=== PATIENT | female | born 1965 | race Caucasian/White ===

== ENCOUNTER 2017-08-09 13:42 | Observation (INO) | payer SELFPAY ==
[~2017-08-09] VITALS: Ht 157.5 cm; Wt 103.5 kg
[~2017-08-09 13:42] MED LIST: ATENOLOL25 MG PO; ATENOLOL50 MG PO; B/P MED; BACTRIM DS1 TAB OR; BACTRIM DS1 TAB PO; BENADRYL 50MG C50 MG OR; DOXYCYC MONO100 MG OR; DOXYCYCL HYC100 MG PO; LISINOPRIL10 MG PO; LORTAB 10 PO; METRONIDAZOL500 MG PO; MOTRIN800 MG PO; NO HOME MEDS; NORVASC PO; PREVACID30 M3 PO; ULTRAM50 M1 OR; ULTRAM50 M1 PO; ZOFRAN ODT4 MG PO
[2017-08-09 14:38] LABS: HEMATOCRIT 43.4 % (37.0-47.0); HEMOGLOBIN 14.8 g/dl (12.0-16.0); IMMATURE GRANULOCYTES 0.4 % (0.0-1.0); MEAN CELL VOLUME 84.4 fL CALC (80.0-100.0); MEAN CORPUSCULAR HGB 28.8 pG CALC (26.0-32.0); MEAN CORPUSCULAR HGB CONC 34.1 g/L CALC (32.0-36.0); NEUT# 7.99 thou/uL (2.00-7.15); RED BLOOD COUNT 5.14 mill/uL (4.20-5.60); RED CELL DISTRI WIDTH 13.3 % (11.5-15.5)
[2017-08-09 14:54] LABS: ALBUMIN 4.4 g/dL (3.2-5.0); ALKALINE PHOSPHATASE 117 u/l (38-126); ANION GAP 16 (6-22 (CALC)); BILIRUBIN, TOTAL 0.9 mg/dL (0.0-1.4); BUN 19 mg/dL (7-17); BUN/CREATININE RATIO 27 (12-20 (CALC)); CALCIUM 9.5 mg/dL (8.4-10.2); CARBON DIOXIDE 24 mmol/l (22-30); CHLORIDE 107 mmol/l (95-108); CREATININE 0.7 mg/dL (0.5-1.0); GFR > 60 ML/MIN (>=60 (CALC)); GFR FOR AFR.AMER. > 60 ML/MIN (>=60 (CALC)); GLUCOSE 101 mg/dL (65-105); POTASSIUM 5.1 mmol/l (3.5-5.1); SGOT/AST 42 u/l (14-36); SGPT/ALT 23 u/l (9-52); SODIUM 142 mmol/l (137-146); TOTAL PROTEIN 8.4 g/dL (6.3-8.2)
[2017-08-09 15:07] LABS: MYOGLOBIN 17 ng/mL (0 - 62)
[2017-08-09 19:11] VITALS: BP 138/79
[2017-08-09 22:07] VITALS: BP 151/78
[2017-08-10 00:10] VITALS: BP 137/71
[2017-08-10 04:28] VITALS: BP 149/83
[2017-08-10 06:09] LABS: HEMATOCRIT 39.9 % (37.0-47.0); HEMOGLOBIN 13.4 g/dl (12.0-16.0); IMMATURE GRANULOCYTES 0.4 % (0.0-1.0); MEAN CELL VOLUME 85.3 fL CALC (80.0-100.0); MEAN CORPUSCULAR HGB 28.6 pG CALC (26.0-32.0); MEAN CORPUSCULAR HGB CONC 33.6 g/L CALC (32.0-36.0); NEUT# 7.6 thou/uL (2.00-7.15); RED BLOOD COUNT 4.68 mill/uL (4.20-5.60); RED CELL DISTRI WIDTH 13.4 % (11.5-15.5)
[2017-08-10 06:22] LABS: ANION GAP 15 (6-22 (CALC)); BUN 21 mg/dL (7-17); BUN/CREATININE RATIO 32 (12-20 (CALC)); CALCIUM 9.1 mg/dL (8.4-10.2); CALCULATED LDLCHOLESTEROL 125 mg/dL (62-129 (CALC)); CARBON DIOXIDE 23 mmol/l (22-30); CHLORIDE 107 mmol/l (95-108); CHOLESTEROL HDL RATIO 5.5 (<4.4 (CALC)); CREATININE 0.7 mg/dL (0.5-1.0); GFR > 60 ML/MIN (>=60 (CALC)); GFR FOR AFR.AMER. > 60 ML/MIN (>=60 (CALC)); GLUCOSE 142 mg/dL (65-105); HDL CHOLESTEROL 34 mg/dL (>=40); MAGNESIUM 1.6 mg/dL (1.6-2.3); SODIUM 142 mmol/l (137-146); TOTAL CHOLESTEROL 188 mg/dl (0-199); TOTAL TRIGLYCERIDES 145 mg/dl (30-149); VLDL CHOLESTROL 29 mg/dl (2-49 (CALC))
[2017-08-10 08:52] VITALS: BP 176/89
[2017-08-10 11:28] VITALS: BP 159/86
[2017-08-10] MEDS ORDERED: AMLODIPINE BESYL5 MG PO (13:30)
[2017-08-10] MEDS ORDERED: ZESTRIL10 M1 PO (13:30)
[2017-08-10] MEDS ORDERED: ASPIRIN ADULT L81 M2 PO (13:30)
== END 2017-08-10 17:15 | disposition home or self-care (01) | DRG 313 ==
LOC: ED 13:42 → ED-I 15:09 → ED 16:28 → MS2 16:29
PROVIDERS: Emergency Medicine; Nurse Practitioner Family; ADMIT Internal Medicine; ATTEND Internal Medicine
DX: R07.89 Other chest pain (principal); I16.0 Hypertensive urgency; I10 Essential (primary) hypertension; Z68.41 Body mass index [BMI] 40.0-44.9, adult; B19.20 Unspecified viral hepatitis C without hepatic coma; Z87.442 Personal history of urinary calculi; F17.210 Nicotine dependence, cigarettes, uncomplicated; E66.9 Obesity, unspecified; Z91.14 Patient's other noncompliance with medication regimen
CPT/HCPCS: G0378

== ENCOUNTER 2017-12-09 08:26 | Emergency (ER) | payer SELFPAY ==
[~2017-12-09] VITALS: Ht 157.5 cm; Wt 127.0 kg
[~2017-12-09 08:26] MED LIST changes: +AMLODIPINE BESYL5 MG PO; +ASPIRIN ADULT L81 M2 PO; +ZESTRIL10 M1 PO
[2017-12-09 09:11] LABS: HEMATOCRIT 44.8 % (37.0-47.0); HEMOGLOBIN 15.1 g/dl (12.0-16.0); IMMATURE GRANULOCYTES 0.3 % (0.0-1.0); MEAN CELL VOLUME 84.5 fL CALC (80.0-100.0); MEAN CORPUSCULAR HGB 28.5 pG CALC (26.0-32.0); MEAN CORPUSCULAR HGB CONC 33.7 g/L CALC (32.0-36.0); NEUT# 8.11 thou/uL (2.00-7.15); RED BLOOD COUNT 5.3 mill/uL (4.20-5.60); RED CELL DISTRI WIDTH 12.6 % (11.5-15.5)
[2017-12-09 10:14] LABS: URINE BILIRUBIN - DIPSTICK NEGATIVE (NEGATIVE); URINE BLOOD DIPSTICK NEGATIVE (NEGATIVE); URINE COLOR YELLOW; URINE GLUCOSE - DIPSTICK 100 mg/dL (NEGATIVE); URINE KETONE TRACE mg/dL (NEGATIVE); URINE LEUK ESTERASE NEGATIVE (NEGATIVE); URINE NITRITE - DIPSTICK NEGATIVE (Negative); URINE PROTEIN - DIPSTICK 30 mg/dL (NEG-TRACE); URINE UROBILINOGEN - DIPSTICK 0.2 E.U./dL (0.2)
[2017-12-09 10:20] LABS: URINE CLARITY CLEAR
[2017-12-09 10:21] LABS: BARBITURATES NEGATIVE (NEGATIVE); COCAINE NEGATIVE (NEGATIVE); METHADONE NEGATIVE (NEGATIVE); OXCYCODONE NEGATIVE (NEGATIVE); TETRAHYDROCANNABIONOL NEGATIVE (NEGATIVE); TRICYLIC ANTIDEPRESSANTS NEGATIVE (NEGATIVE)
[2017-12-09 10:29] LABS: ALBUMIN 4.5 g/dL (3.2-5.0); ALKALINE PHOSPHATASE 173 u/l (38-126); ANION GAP 16 (6-22 (CALC)); BILIRUBIN, TOTAL 0.6 mg/dL (0.0-1.4); BUN 13 mg/dL (7-17); BUN/CREATININE RATIO 22 (12-20 (CALC)); CALCIUM 9.7 mg/dL (8.4-10.2); CARBON DIOXIDE 25 mmol/l (22-30); CHLORIDE 107 mmol/l (95-108); CREATININE 0.6 mg/dL (0.5-1.0); GFR > 60 ML/MIN (>=60 (CALC)); GFR FOR AFR.AMER. > 60 ML/MIN (>=60 (CALC)); GLUCOSE 145 mg/dL (65-105); POTASSIUM 3.8 mmol/l (3.5-5.1); SGOT/AST 38 u/l (14-36); SGPT/ALT 38 u/l (9-52); SODIUM 143 mmol/l (137-146); TOTAL PROTEIN 7.6 g/dL (6.3-8.2)
[2017-12-09 10:32] LABS: URINE MUCUS FEW hpf (NONE-FEW); URINE SQUAMOUS EPITHELIAL CELL FEW EPI/hpf (0-FEW)
[2017-12-09 10:39] LABS: MYOGLOBIN 26 ng/mL (0 - 62)
[2017-12-09 15:37] VITALS: BP 176/80
== END 2017-12-09 15:30 | disposition short-term general hospital (02) | DRG 312 ==
LOC: ED 08:26
PROVIDERS: Emergency Medicine
PROC: 0T9B70Z Drainage of Bladder with Drainage Device, Via Natural or Artificial Opening (ICD-10-PCS; principal; 2017-12-09)
DX: R55 Syncope and collapse (principal); M41.9 Scoliosis, unspecified; F17.210 Nicotine dependence, cigarettes, uncomplicated; I10 Essential (primary) hypertension; R29.6 Repeated falls; R42 Dizziness and giddiness; R47.81 Slurred speech; Y92.009 Unspecified place in unspecified non-institutional (private) residence as the place of occurrence of the external cause

== ENCOUNTER 2018-08-30 10:08 | Emergency (ER) | payer SELFPAY ==
[~2018-08-30] VITALS: Ht 157.5 cm; Wt 102.0 kg
[2018-08-30] MEDS ORDERED: AMLODIPINE2.5 MG PO (10:22)
[2018-08-30] MEDS ORDERED: LISINOPRIL5 MG PO (10:22)
[2018-08-30] MEDS ORDERED: FLEXERIL5 M1 PO (11:44)
[2018-08-30 12:07] VITALS: BP 135/83
== END 2018-08-30 12:07 | disposition home or self-care (01) | DRG 563 ==
LOC: ED 10:08
DX: S46.911A Strain of unspecified muscle, fascia and tendon at shoulder and upper arm level, right arm, initial encounter (principal); X50.0XXA Overexertion from strenuous movement or load, initial encounter; Y93.E9 Activity, other interior property and clothing maintenance; Y92.009 Unspecified place in unspecified non-institutional (private) residence as the place of occurrence of the external cause

== ENCOUNTER 2020-07-10 16:24 | Emergency (ER) | payer SELFPAY ==
[~2020-07-10] VITALS: Ht 157.5 cm; Wt 75.0 kg
[~2020-07-10 16:24] MED LIST changes: +AMLODIPINE2.5 MG PO; +FLEXERIL5 M1 PO; +LISINOPRIL5 MG PO
[2020-07-10 17:20] LABS: HEMATOCRIT 42.7 % (37.0-47.0); HEMOGLOBIN 13.9 g/dl (12.0-16.0); IMMATURE GRANULOCYTES 0.2 % (0.0-5.0); MEAN CELL VOLUME 83.7 fL CALC (80.0-100.0); MEAN CORPUSCULAR HGB 27.3 pG CALC (26.0-32.0); MEAN CORPUSCULAR HGB CONC 32.6 g/dL CAL (32.0-36.0); NEUT# 6.51 thou/uL (2.00-7.15); RED BLOOD COUNT 5.1 mill/uL (4.20-5.60); RED CELL DISTRI WIDTH 11.9 % (11.5-15.5)
[2020-07-10 17:29] LABS: URINE BILIRUBIN - DIPSTICK NEGATIVE (NEGATIVE); URINE BLOOD DIPSTICK NEGATIVE (NEGATIVE); URINE COLOR YELLOW; URINE GLUCOSE - DIPSTICK NEGATIVE (NEGATIVE); URINE KETONE TRACE mg/dL (NEGATIVE); URINE LEUK ESTERASE NEGATIVE (NEGATIVE); URINE NITRITE - DIPSTICK NEGATIVE (Negative); URINE PROTEIN - DIPSTICK NEGATIVE (NEG-TRACE); URINE SPECIFIC GRAVITY 1.025; URINE UROBILINOGEN - DIPSTICK 0.2 E.U./dL (0.2)
[2020-07-10 17:38] LABS: ALBUMIN 4.1 g/dL (3.2-5.0); ALKALINE PHOSPHATASE 149 u/l (38-126); ANION GAP 11 (6-22 (CALC)); BUN 12 mg/dL (7-17); BUN/CREATININE RATIO 16 (12-20 (CALC)); CARBON DIOXIDE 26 mmol/l (22-30); CHLORIDE 106 mmol/l (95-108); CREATININE 0.7 mg/dL (0.5-1.0); GFR > 60 ML/MIN (>=60 (CALC)); GFR FOR AFR.AMER. > 60 ML/MIN (>=60 (CALC)); POTASSIUM 3.2 mmol/l (3.5-5.1); SGOT/AST 20 u/l (14-36); SODIUM 139 mmol/l (137-146); TOTAL PROTEIN 6.9 g/dL (6.3-8.2)
[2020-07-10 17:43] LABS: BILIRUBIN, TOTAL 0.2 mg/dL (0.0-1.4)
[2020-07-10] MEDS ORDERED: AMLODIPINE BESY10 MG PO (18:30)
[2020-07-10] MEDS ORDERED: LISINOPRIL20 MG PO (18:30)
[2020-07-10] MEDS ORDERED: K-TAB20 MEQ PO (19:08)
[2020-07-10 19:15] VITALS: BP 169/65
== END 2020-07-10 19:16 | disposition home or self-care (01) | DRG 305 ==
LOC: ED 16:24
PROVIDERS: Family Medicine
DX: I10 Essential (primary) hypertension (principal); E87.6 Hypokalemia; B19.20 Unspecified viral hepatitis C without hepatic coma; F17.210 Nicotine dependence, cigarettes, uncomplicated; Z86.73 Personal history of transient ischemic attack (TIA), and cerebral infarction without residual deficits

== ENCOUNTER 2020-11-09 05:53 | Observation (INO) | payer OTHER ==
[2020-11-09] VITALS (9 sets, daily range): BP systolic 139–170; BP diastolic 74–94
[~2020-11-09] VITALS: Ht 157.5 cm; Wt 104.0 kg
[~2020-11-09 05:53] MED LIST changes: +AMLODIPINE BESY10 MG PO; +K-TAB20 MEQ PO; +LISINOPRIL20 MG PO
--- NOTE | 2020-11-09 05:55 | NUR ---
PT ARRIVED VIA DCFR. TRANSFERRED TO [facility] IN ROOM 12. A/O. NAD. C/O PAIN BUT NO VOMITING OR NAUSEA AT THIS TIME.
[2020-11-09 06:50] LABS: URINE BILIRUBIN - DIPSTICK NEGATIVE (NEGATIVE); URINE BLOOD DIPSTICK NEGATIVE (NEGATIVE); URINE COLOR YELLOW; URINE GLUCOSE - DIPSTICK NEGATIVE (NEGATIVE); URINE KETONE NEGATIVE (NEGATIVE); URINE LEUK ESTERASE NEGATIVE (NEGATIVE); URINE NITRITE - DIPSTICK NEGATIVE (Negative); URINE PROTEIN - DIPSTICK NEGATIVE (NEG-TRACE); URINE SPECIFIC GRAVITY >=1.030; URINE UROBILINOGEN - DIPSTICK 0.2 E.U./dL (0.2)
[2020-11-09 06:50] LABS: HEMATOCRIT 41.9 % (37.0-47.0); HEMOGLOBIN 13.7 g/dl (12.0-16.0); IMMATURE GRANULOCYTES 0.2 % (0.0-5.0); MEAN CELL VOLUME 84.8 fL CALC (80.0-100.0); MEAN CORPUSCULAR HGB 27.7 pG CALC (26.0-32.0); MEAN CORPUSCULAR HGB CONC 32.7 g/dL CAL (32.0-36.0); NEUT# 10.05 thou/uL (2.00-7.15); RED BLOOD COUNT 4.94 mill/uL (4.20-5.60); RED CELL DISTRI WIDTH 12.6 % (11.5-15.5)
--- NOTE | 2020-11-09 06:56 | NUR ---
PATIENT MEDICATED FOR PAIN, NAUSEA AND ABT TREATMENT STARTED PER MD ORDER, RESTING QUIETLY, NO C/O PAIN OR DISCOMFORT, NO S/S OF DISTRESS NOTED, RESPIRATIONS EVEN AND UNLABORED, AWAITING RADIOLOGY.
--- NOTE | 2020-11-09 06:59 | NUR ---
HAND OFF REPORT GIVEN TO
--- NOTE | 2020-11-09 07:00 | NUR ---
RECEIVED BEDSIDE REPORT FORM LUKE ANDREW.
[2020-11-09 07:03] LABS: ALBUMIN 4.1 g/dL (3.2-5.0); ALKALINE PHOSPHATASE 188 u/l (38-126); AMYLASE 41 u/l (30-110); BUN 14 mg/dL (7-17); BUN/CREATININE RATIO 24 (12-20 (CALC)); CARBON DIOXIDE 25 mmol/l (22-30); CHLORIDE 106 mmol/l (95-108); CREATININE 0.6 mg/dL (0.5-1.0); GFR > 60 ML/MIN (>=60 (CALC)); GFR FOR AFR.AMER. > 60 ML/MIN (>=60 (CALC)); LIPASE 74 u/l (23-300); SGOT/AST 20 u/l (14-36); SODIUM 139 mmol/l (137-146)
[2020-11-09 07:06] LABS: ANION GAP 12 (6-22 (CALC)); BILIRUBIN, TOTAL 0.3 mg/dL (0.0-1.4); POTASSIUM 3.9 mmol/l (3.5-5.1)
[2020-11-09 07:14] LABS: MYOGLOBIN 17 ng/mL (0 - 62)
--- NOTE | 2020-11-09 07:16 | NUR ---
MD AT BEDSIDE TO DISCUSS RESULTS AND POC.
--- NOTE | 2020-11-09 09:55 | NUR ---
MD AT BEDSIDE TO DISCUSS RESULTS AND POC.
--- NOTE | 2020-11-09 10:44 | NUR ---
DR STEIN AT BEDSIDE.
--- NOTE | 2020-11-09 11:06 | NUR ---
DR WELCH AT BEDSIDE TO DISCUSS POC.
--- NOTE | 2020-11-09 11:40 | NUR ---
TO OR VIA STRETCHER.
--- NOTE | 2020-11-09 12:22 | NUR ---
REPORT CALLED TO KARY ANDREW.
--- NOTE | 2020-11-09 15:04 | NUR ---
PT ARRIVES TO MEDSUR FLOOR FROM OR, SLEEPY BUT AROUSABLE, ORIENTED X 3. LUNGS CLEAR, DIMINISHED BASES, 2 LPM NC. ABDOMEN SOFT, DISTENDED, SURGICAL SITES X 3 WNL, DERMABOND COVERING. PT UP TO BSC UPON ARRIVAL TO FLOOR, STEADY ON HER FEET. NO COMPLAINT OF PAIN OR NAUSEA. IVF 125/HR.
--- NOTE | 2020-11-09 17:58 | NUR ---
PT DENIES PAIN, RESTS IN THE BED IN NO ACUTE DISTRESS. REGULAR DIET PROVIDED, PT TOLERATES WELL.
--- NOTE | 2020-11-09 20:13 | NUR ---
ASSESSMENT COMPLETED. IV SITES X2 PATENT WITH ORDERED IVF INFUSING WELL. EDUCATED ON I/S AND PT. ABLE TO PULL 750 AND GOAL SET TO 1000; X3 PUNCTURE SURGICAL SITES NOTED WITH DERMABOND INTACT. SCD'S IN PLACE TO BLE. DENIES NEEDS/PAIN.ENCOURAGED TO CALL FOR ANY NEEDS. CALL LIGHT IS IN REACH. WILL CONTINUE TO MONITOR.
--- NOTE | 2020-11-09 23:45 | NUR ---
VS OBTAINED SPO2 91% WITH O2 @2 LITERS/MIN PER NC; LEFT IN PLACE AT THIS TIME. OFFERED TO AMBULATE WIT PT. AND SHE DECLINES AT THIS TIME. MEDICATED PER EMAR. CALL LIGHT IS IN REACH. WILL CONTINUE TO MONITOR.
--- NOTE | 2020-11-10 02:00 | NUR ---
RESTING IN BED WITH EYES CLOSED; RESP. EVEN AND UNLABORED. CALL LIGHT IS IN REACH.
--- NOTE | 2020-11-10 03:30 | NUR ---
RESTING IN BED WITH EYES CLOSED; RESP. EVEN AND UNLABORED. CALL LIGHT IS IN REACH.
[2020-11-10 04:00] VITALS: BP 164/90
--- NOTE | 2020-11-10 05:22 | NUR ---
PT. MEDICATED FOR PAIN WITH SCHEDULED/ORDERED TORADOL; WILL REASSESS. PT. UP TO VOID AND UP AMBULATED DOWN THE 70'S [place] TWO TIMES. SPO2 ON RA AFTER AMBULATION IS 95%. DENIES FURTHER NEEDS. CALL LIGHT IS IN REACH.
[2020-11-10 07:37] VITALS: BP 160/62
--- NOTE | 2020-11-10 09:00 | NUR ---
PT DOING WELL POST SURGICALLY, SEEN OOB IN ROOM, USING BR APPROPRIATELY. PT ENCOURAGE TO USE INCENTIVE SPIROMETER. NO UNUSUAL PAIN NOTED.
[2020-11-10 10:54] VITALS: BP 166/94
[2020-11-10] MEDS ORDERED: PERCOCET 5/325M1 TAB PO (12:43)
--- NOTE | 2020-11-10 15:19 | NUR ---
PT HAS BEEN SEEN BY DR STEIN TODAY AND DISCHARGED TO HOME. PT VERBALIZES UNDERSTANDING OF DC INSTRUCTIONS, TAKEN BY WHEELCHAIR TO [facility] OUTSIDE. PT LEAVES [facility] IN STABLE CONDITION.
== END 2020-11-10 14:50 | disposition home or self-care (01) ==
LOC: ED 05:53 → MS2 09:33
PROVIDERS: Emergency Medicine; ADMIT Surgery; ATTEND Surgery
DX: K80.12 Calculus of gallbladder with acute and chronic cholecystitis without obstruction (principal); I10 Essential (primary) hypertension; F32.9 Major depressive disorder, single episode, unspecified; F41.9 Anxiety disorder, unspecified; B19.20 Unspecified viral hepatitis C without hepatic coma; F17.200 Nicotine dependence, unspecified, uncomplicated; Z86.73 Personal history of transient ischemic attack (TIA), and cerebral infarction without residual deficits; Z20.828 Contact with and (suspected) exposure to other viral communicable diseases
CPT/HCPCS: J0131; J1100; J1650; Q9967; S0164

== ENCOUNTER 2022-03-09 09:00 | Emergency (ER) | payer OTHER ==
[~2022-03-09] VITALS: Ht 157.5 cm; Wt 94.4 kg
[~2022-03-09 09:00] MED LIST changes: +PERCOCET 5/325M1 TAB PO
[2022-03-09] MEDS ORDERED: AMOX/K CLAV875 M1 PO (09:28)
[2022-03-09 10:00] VITALS: BP 128/77
== END 2022-03-09 10:25 | disposition home or self-care (01) ==
LOC: ED 09:00
DX: S01.551A Open bite of lip, initial encounter (principal); I10 Essential (primary) hypertension; F32.A Depression, unspecified; F41.9 Anxiety disorder, unspecified; B19.20 Unspecified viral hepatitis C without hepatic coma; F17.200 Nicotine dependence, unspecified, uncomplicated; W54.0XXA Bitten by dog, initial encounter; Y92.009 Unspecified place in unspecified non-institutional (private) residence as the place of occurrence of the external cause; Z86.73 Personal history of transient ischemic attack (TIA), and cerebral infarction without residual deficits

== ENCOUNTER 2023-11-27 12:45 | Emergency (ER) | payer OTHER ==
[~2023-11-27] VITALS: Ht 157.5 cm; Wt 82.8 kg
[2023-11-27] VITALS (15 sets, daily range): BP systolic 102–133; BP diastolic 62–81
[~2023-11-27 12:45] MED LIST changes: +AMOX/K CLAV875 M1 PO; +FISH OIL1000 M1 PO; +FLUOXETINE40 MG PO; +LISINOPRIL40 MG PO; +METFORMIN500 M2 PO; +NORVASC10 M1 PO; +ONDANSETRON4 MG PO; +OXYBUTIN PO; +ROSUVASTATIN CA40 MG PO
[2023-11-27 13:40] LABS: BASO% 0.5 % (0-3); EOS% 3.2 % (0-8); HEMATOCRIT 38.3 % (37.0-47.0); HEMOGLOBIN 12.2 g/dl (12.0-16.0); IMMATURE GRANULOCYTES 0.1 % (0.0-5.0); LYMPH% 26.6 % (15-41); MEAN CELL VOLUME 91.6 fL CALC (80.0-100.0); MEAN CORPUSCULAR HGB 29.2 pG CALC (26.0-32.0); MEAN CORPUSCULAR HGB CONC 31.9 g/dL CAL (32.0-36.0); MONO% 5.2 % (2-13); NEUT# 6.3 thou/uL (2.00-7.15); NEUT% 64.4 % (42-76); RED BLOOD COUNT 4.18 mill/uL (4.20-5.60)
[2023-11-27 14:02] LABS: ALBUMIN 4.4 g/dL (3.2-5.0); ALKALINE PHOSPHATASE 89 u/l (38-126); ANION GAP 13 (6-22 (CALC)); BILIRUBIN, TOTAL 0.4 mg/dL (0.02-1.3); BUN 19 mg/dL (7-17); BUN/CREATININE RATIO 21 (12-20 (CALC)); CALCULATED LDLCHOLESTEROL 38 mg/dL (62-129 (CALC)); CHLORIDE 114 mmol/l (95-108); CHOLESTEROL HDL RATIO 2.2 (<4.4 (CALC)); CREATININE 0.9 mg/dL (0.5-1.0); GFR FOR AFR.AMER. > 60 ML/MIN (>=60 (CALC)); GFR OTHER RACES > 60 ML/MIN (>=60 (CALC)); HDL CHOLESTEROL 44 mg/dL (39.0-59.0); SGOT/AST 26 u/l (14-36); SODIUM 145 mmol/l (137-146); TOTAL CHOLESTEROL 99 mg/dl (0-199); TOTAL PROTEIN 7.1 g/dL (6.3-8.2); TOTAL TRIGLYCERIDES 83 mg/dl (0-149); VLDL CHOLESTROL 17 mg/dl (2-49 (CALC))
[2023-11-27 14:05] LABS: CARBON DIOXIDE 22 mmol/l (22-30)
[2023-11-27 14:14] LABS: INTERNATIONAL NORMALIZED RATIO 1.1 RATIO (0.7-1.3); PROTHROMBIN TIME 10.3 SECONDS (9.0-12.5)
[2023-11-27 14:27] LABS: URINE BILIRUBIN - DIPSTICK Negative (NEGATIVE); URINE BLOOD DIPSTICK Negative (NEGATIVE); URINE GLUCOSE - DIPSTICK Negative (NEGATIVE); URINE KETONE Negative (NEGATIVE); URINE PROTEIN - DIPSTICK Negative (NEG-TRACE); URINE UROBILINOGEN - DIPSTICK 0.2 E.U./dL (0.2)
[2023-11-27 14:30] LABS: URINE COLOR Yellow; URINE LEUK ESTERASE Small (NEGATIVE); URINE NITRITE - DIPSTICK Positive (Negative)
[2023-11-27 14:34] LABS: URINE BACTERIA MANY hpf; URINE RBC 0-2 RBC/hpf (0-5)
[2023-11-27 14:35] LABS: URINE SQUAMOUS EPITHELIAL CELL FEW EPI/hpf (0-FEW)
[2023-11-27] MEDS ORDERED: ONDANSETRON4 MG PO (18:06)
[2023-11-27] MEDS ORDERED: BACTRIM DS1 TAB PO (18:06)
== END 2023-11-27 19:25 | disposition home or self-care (01) ==
LOC: ED 12:45
PROVIDERS: Emergency Medicine
DX: R53.1 Weakness (principal); N39.0 Urinary tract infection, site not specified; B96.20 Unspecified Escherichia coli [E. coli] as the cause of diseases classified elsewhere; I10 Essential (primary) hypertension; F41.9 Anxiety disorder, unspecified; F32.A Depression, unspecified; B19.20 Unspecified viral hepatitis C without hepatic coma; F17.200 Nicotine dependence, unspecified, uncomplicated; Z86.73 Personal history of transient ischemic attack (TIA), and cerebral infarction without residual deficits
CPT/HCPCS: Q9967